=== PATIENT | female | born 1995 | race American Indian/Alaskan Native ===

== ENCOUNTER 2024-10-20 13:03 | Outpatient (RCR) | payer OTHER, MEDICAID, SELFPAY | END 2024-11-16 23:59 | disposition home or self-care (01) | LOC: SCTC 13:03 | PROVIDERS: PCP Physician Assistant; Referring Provider Physician Assistant; Visit Provider Nurse Practitioner Family | DX: D72.829 Elevated white blood cell count, unspecified (principal); D72.828 Other elevated white blood cell count; E61.1 Iron deficiency | CPT/HCPCS: 99213; G0463 ==

== ENCOUNTER → 2024-10-21 | Outpatient (CLI) | payer OTHER, MEDICAID, SELFPAY ==
[2024-10-21 09:45] LABS: Misc Send Out* See Sep Rpt
[2024-10-21 10:38] LABS: Basophils # (Auto) 0.1 Thou/mm3 (0.0-0.2); Basophils % (Auto) 1 % (0-2.5); Eosinophils # (Auto) 0.1 Thou/mm3 (0.0-0.5); Eosinophils % (Auto) 1 % (0-10); Hematocrit 36.8 % (36.0-46.0); Hemoglobin 12.4 g/dL (12.0-16.0); Immature Granulocytes % (Auto) 0 % (0-0); Immature Granulocytes Auto 0.03 Thou/mm3 (0.00-0.00); Immature Reticulocyte Fraction 6.8 % (3.0-15.9); Lymphocytes # (Auto) 2.5 Thou/mm3 (1.0-4.8); Lymphocytes % (Auto) 24 % (10-50); Mean Corpuscular HGB Conc 33.7 g/dl (31.0-37.0); Mean Corpuscular Hemoglobin 26.4 pg (25.0-35.0); Mean Corpuscular Volume 78 fL (80-100); Monocytes # (Auto) 0.7 Thou/mm3 (0.0-0.8); Monocytes % (Auto) 7 % (0-12); Neutrophils # (Auto) 6.9 Thou/mm3 (1.8-7.7); Neutrophils % (Auto) 67 % (37-80); Nucleated Red Blood Cell % 0 /100 WBC (0); Platelet Count 372 Thou/mm3 (140-440); RDW Standard Deviation 46.3 fL (36.4-46.3); Reticulocyte % (Auto) 0.8 % (0.5-1.5); Reticulocyte Absolute Auto 36.2 Biln/L (25.0-75.0); White Blood Count 10.3 Thou/mm3 (3.6-11.0)
[2024-10-21 10:56] LABS: Alanine Aminotransferase 19 U/L (10-49); Albumin, Serum 4.6 gm/dL (3.5-5.0); Albumin/Globulin Ratio 2.6 (1.2-2.2); Alkaline Phosphatase 78 U/L (46-116); Anion Gap 7 (7-16); Aspartate Amino Transferase 12 U/L (0-34); BUN/Creatinine Ratio 21 Ratio (12-20); Bilirubin,Total 0.4 mg/dL (0.3-1.2); Blood Urea Nitrogen 17 mg/dL (9-23); Calcium 9.7 mg/dL (8.3-10.6); Calcium (Corrected) 9.7 mg/dL (8.5-10.1); Chloride 108 mMol/L (98-107); Creatinine (Component) 0.8 mg/dL (0.6-1.3); Globulin 1.8 gm/dL (2.3-3.5); Glucose 85 mg/dL (74-106); LDH (Lactate Dehydrogenase) 137 U/L (120-246); Osmolality,Calculated 279 (275-295); Potassium 4.4 mMol/L (3.4-5.1); Sodium 140 mMol/L (136-145); Total Protein 6.4 gm/dL (5.7-8.2); Uric Acid 4.4 mg/dL (3.1-7.8); eGFR > 60 See Note
[2024-10-21 11:08] LABS: Folate 11.22 ng/mL (>5.38); Vitamin B12 344 pg/mL (211-911)
[2024-10-21 12:02] LABS: Ferritin 13 ng/mL (7.3-270.7); Iron 37 mcg/dL (50-170); Percent Iron Saturation 12 % (20-55); Total Iron Binding Capacity 300 mcg/dL (250-425); Unsaturated Iron Binding 263 (225-295)
[2024-10-26 06:57] LABS: P190 BCR-ABL1 NOT DETECTED; P210 BCR-ABL1 NOT DETECTED
== END | disposition home or self-care (01) ==
LOC: SCTO 09:21
PROVIDERS: PCP Physician Assistant; Referring Provider Nurse Practitioner Family; Visit Provider Nurse Practitioner Family
DX: D72.9 Disorder of white blood cells, unspecified (principal)
CPT/HCPCS: 36415; 80053; 81206; 81207; 82607; 82728; 82746; 83540; 83550; 83615; 84550; 85025; 85046

== ENCOUNTER → 2024-10-26 | Outpatient (CLI) | payer OTHER, MEDICAID, SELFPAY ==
[2024-10-26 09:45] LABS: Flow Cytometry* See Sep Rpt
[2024-10-26 11:31] LABS: Basophils # (Auto) 0.1 Thou/mm3 (0.0-0.2); Basophils % (Auto) 0 % (0-2.5); Eosinophils # (Auto) 0.1 Thou/mm3 (0.0-0.5); Eosinophils % (Auto) 1 % (0-10); Hematocrit 35.7 % (36.0-46.0); Hemoglobin 11.9 g/dL (12.0-16.0); Immature Granulocytes % (Auto) 0 % (0-0); Immature Granulocytes Auto 0.05 Thou/mm3 (0.00-0.00); Lymphocytes # (Auto) 2.7 Thou/mm3 (1.0-4.8); Lymphocytes % (Auto) 23 % (10-50); Mean Corpuscular HGB Conc 33.3 g/dl (31.0-37.0); Mean Corpuscular Hemoglobin 26.2 pg (25.0-35.0); Mean Corpuscular Volume 79 fL (80-100); Monocytes # (Auto) 0.8 Thou/mm3 (0.0-0.8); Monocytes % (Auto) 7 % (0-12); Neutrophils # (Auto) 7.8 Thou/mm3 (1.8-7.7); Neutrophils % (Auto) 69 % (37-80); Nucleated Red Blood Cell % 0 /100 WBC (0); Platelet Count 386 Thou/mm3 (140-440); RDW Standard Deviation 45.8 fL (36.4-46.3); Red Blood Count 4.54 Miln/mm3 (4.00-5.20); White Blood Count 11.4 Thou/mm3 (3.6-11.0)
== END | disposition home or self-care (01) ==
LOC: SCTO 09:26
PROVIDERS: PCP Physician Assistant; Referring Provider Nurse Practitioner Family; Visit Provider Nurse Practitioner Family
DX: D72.9 Disorder of white blood cells, unspecified (principal)
CPT/HCPCS: 36415; 85025

== ENCOUNTER → 2024-11-11 | Outpatient (CLI) | payer OTHER, MEDICAID, SELFPAY ==
[2024-11-10 12:36] LABS: HCG Qualitative,Urine Negative
--- NOTE | 2024-11-11 14:00 | XR_ITS ---
Examination: CT chest with intravenous contrast CT abdomen with intravenous contrast CT pelvis with intravenous contrast 2-D coronal and sagittal reconstructions Time of exam: November 11, [address] abdomen pelvis November 28, 2021, CTA chest April 20, 2021 INDICATIONS: Diagnosis splenomegaly not elsewhere classified, diagnosis elevated white blood cell count CTDI: vol (mGy) : 10.0 DLP: (mGycm): 772 Technique: Multiple axial images of the chest, abdomen and pelvis with intravenous contrast, 3.0 mm slice thickness. Images obtained post intravenous injection Isovue 370 60 cc. 2-D sagittal and coronal reconstructions. Low dose protocols were performed. One or more of the following dose reduction techniques were used; automated exposure control, adjustment of the mA and/or KV according to patient size, use of iterative reconstruction technique. Findings: No thoracic aortic aneurysmal dilatation No pulmonary artery emboli on this non-CTA study No pneumonia or pulmonary edema or pulmonary nodules Liver 16.4 cm spleen 11 cm No focal liver or splenic lesions Contracted gallbladder Normal pancreas normal adrenal glands No abdominal or pelvic lymphadenopathy No renal or ureteral calculi, no hydronephrosis Normal appendix No bowel obstruction No diverticulitis Anteverted uterus Intact urinary bladder The osseous structures are intact IMPRESSION: No mediastinal lymphadenopathy No pneumonia or pulmonary edema pleural disease or pulmonary nodules Mild hepatomegaly 16.4 cm Negative for splenomegaly No abdominal or pelvic lymphadenopathy
== END | disposition home or self-care (01) ==
PROVIDERS: Referring Provider Nurse Practitioner Family; Visit Provider Nurse Practitioner Family
DX: R16.1 Splenomegaly, not elsewhere classified (principal); D72.9 Disorder of white blood cells, unspecified; Z32.00 Encounter for pregnancy test, result unknown
CPT/HCPCS: 71260; 74177; 81025; A4649; Q9967

== ENCOUNTER → 2024-11-17 | Outpatient (CLI) | payer OTHER, MEDICAID, SELFPAY ==
[2024-11-17 11:30] LABS: Basophils # (Auto) 0.1 Thou/mm3 (0.0-0.2); Basophils % (Auto) 0 % (0-2.5); Eosinophils # (Auto) 0.1 Thou/mm3 (0.0-0.5); Eosinophils % (Auto) 1 % (0-10); Hematocrit 36.8 % (36.0-46.0); Hemoglobin 12.4 g/dL (12.0-16.0); Immature Granulocytes % (Auto) 0 % (0-0); Immature Granulocytes Auto 0.04 Thou/mm3 (0.00-0.00); Immature Reticulocyte Fraction 9.3 % (3.0-15.9); Lymphocytes # (Auto) 2.5 Thou/mm3 (1.0-4.8); Lymphocytes % (Auto) 22 % (10-50); Mean Corpuscular HGB Conc 33.7 g/dl (31.0-37.0); Mean Corpuscular Hemoglobin 26.4 pg (25.0-35.0); Mean Corpuscular Volume 79 fL (80-100); Monocytes # (Auto) 0.9 Thou/mm3 (0.0-0.8); Monocytes % (Auto) 8 % (0-12); Neutrophils # (Auto) 7.7 Thou/mm3 (1.8-7.7); Neutrophils % (Auto) 69 % (37-80); Nucleated Red Blood Cell % 0 /100 WBC (0); Platelet Count 380 Thou/mm3 (140-440); RDW Standard Deviation 46.3 fL (36.4-46.3); Red Blood Count 4.69 Miln/mm3 (4.00-5.20); Reticulocyte Absolute Auto 48.3 Biln/L (25.0-75.0); Reticulocyte Hgb Content 32.6 pg (28.0-35.0); White Blood Count 11.2 Thou/mm3 (3.6-11.0)
[2024-11-17 12:05] LABS: Folate 9.83 ng/mL (>5.38); Vitamin B12 409 pg/mL (211-911)
[2024-11-17 12:10] LABS: Ferritin 21 ng/mL (7.3-270.7); Iron 22 mcg/dL (50-170); Percent Iron Saturation 8 % (20-55); Total Iron Binding Capacity 275 mcg/dL (250-425); Unsaturated Iron Binding 253 (225-295)
[2024-11-17 12:11] LABS: Alanine Aminotransferase 30 U/L (10-49); Albumin, Serum 4.4 gm/dL (3.5-5.0); Albumin/Globulin Ratio 2.3 (1.2-2.2); Alkaline Phosphatase 86 U/L (46-116); Anion Gap 10 (7-16); Aspartate Amino Transferase 18 U/L (0-34); BUN/Creatinine Ratio 21 Ratio (12-20); Bilirubin,Total 0.6 mg/dL (0.3-1.2); Blood Urea Nitrogen 15 mg/dL (9-23); Calcium 9.6 mg/dL (8.3-10.6); Calcium (Corrected) 9.6 mg/dL (8.5-10.1); Carbon Dioxide 22.5 mMol/L (20.0-31.0); Chloride 108 mMol/L (98-107); Creatinine (Component) 0.7 mg/dL (0.6-1.3); Globulin 1.9 gm/dL (2.3-3.5); Glucose 92 mg/dL (74-106); Osmolality,Calculated 280 (275-295); Potassium 4.4 mMol/L (3.4-5.1); Sodium 140 mMol/L (136-145); Total Protein 6.3 gm/dL (5.7-8.2); eGFR > 60 See Note
== END | disposition home or self-care (01) ==
LOC: SCTO 10:15
PROVIDERS: PCP Nurse Practitioner Family; Referring Provider Nurse Practitioner Family; Visit Provider Nurse Practitioner Family
DX: D72.9 Disorder of white blood cells, unspecified (principal)
CPT/HCPCS: 36415; 80053; 82607; 82728; 82746; 83540; 83550; 85025; 85046

== ENCOUNTER 2024-11-26 09:50 | Outpatient (RCR) | payer OTHER, MEDICAID, SELFPAY | END 2024-12-16 23:59 | disposition home or self-care (01) | LOC: SCTC 09:50 | PROVIDERS: PCP Nurse Practitioner Family; Referring Provider Nurse Practitioner Family; Visit Provider Nurse Practitioner Family | DX: D72.829 Elevated white blood cell count, unspecified (principal); R16.0 Hepatomegaly, not elsewhere classified; E66.9 Obesity, unspecified | CPT/HCPCS: 99212; G0463 ==